=== PATIENT | male | born 1985 | race Caucasian/White ===

== ENCOUNTER 2017-03-15 08:45 | Emergency (ER) | payer BC ==
[~2017-03-15] VITALS: Ht 177.8 cm; Wt 125.5 kg
[~2017-03-15 08:45] MED LIST: AZIT250T PO; GUAI100L2 PO; LORA-741 PO; PRED10TA PO
[2017-03-15 08:53] VITALS: TEMP 36.7; Ht 177.8 cm; Wt 125.5 kg
[2017-03-15] MEDS ORDERED: SODIUM CHLORIDE 0.9% 1000ML 1,000 ML IV STA (09:13)
--- NOTE | 2017-03-15 09:27 | EMERGENCY ROOM VISIT NOTE ---
History First contact with patient: 09:01 Chief Complaint: ABDOMINAL PAIN Stated Complaint: PAIN BELOW BELLY BUTTON Nursing Triage Summary: patient c/o mid lower abdominal pain and tenderness to right lower abdomen since yesterday. patient referred to ER by PCP this AM. History of Present Illness The patient is a 32 year old male who presents to the Emergency Room with complaints of lower abdominal pain that started yesterday morning. He states the pain started around his bellybutton area, now has moved over towards the right side, pain has been constant and is worsening symptoms yesterday, worse with movement and attempts to brain picker objects or bending over, better with lying flat and resting, 8/10. He has tried ibuprofen for the pain, which has not helped, last dose was 10 PM yesterday. He has associated nausea and decreased appetite, denies any vomiting, diarrhea, fevers or chills. He ate a piece of bagel this morning at 6:30 AM. He saw his PCP today, who referred him here for further evaluation. He does report a history of a PE in 2013 secondary to surgery, states he is no longer on blood thinners but does take a baby aspirin. He denies any headaches, neck pain, chest pain, shortness of breath, back pain, diarrhea or blood in the stool, dysuria, urinary frequency, hematuria, or rash. Review of Systems A complete 10 point review of systems was reviewed with the patient with pertinent positives and negatives as per history of present illness. All else were negative. Past Medical/Surgical History Pulmonary embolism, cholecystectomy Family History Patient reports no known family medical history. Social History Smoking Status: Never Smoker Alcohol Use: none Drug Use: none Marital Status: Housing Status: lives with family Occupation Status: employed Current/Historical Medications No Active Prescriptions or Reported Meds Allergies No known allergies Physical Exam Vital Signs Date Time Temp Pulse Resp B/P (MAP) Pulse Ox O2 Delivery O2 Flow Rate FiO2 03/15/17 12:17 69 16 130/84 96 Room Air 03/15/17 10:30 70 18 139/96 96 Room Air 03/15/17 08:53 36.7 82 20 149/95 98 Room Air Physical Exam CONSTITUTIONAL: No acute distress. Mildly dehydrated. Obese. Pleasant and cooperative, interacts appropriately with provider. HEENT: Normocephalic, atraumatic. Pupils equal, round and reactive to light, EOMI. TMs normal. Pharynx normal. Tacky mucous membranes. NECK: Supple, full active range of motion without discomfort. RESPIRATORY: Clear to auscultation bilaterally with no wheezing, crackles, rhonchi or stridor. Equal expansion bilaterally. CARDIOVASCULAR: Regular rate and rhythm with no murmurs, rubs or gallops. Normal peripheral perfusion. No edema. GASTROINTESTINAL: Tenderness in the periumbilical and right lower quadrant region. Positive guarding on the right lower quadrant, negative rebound. Positive McBurney's point tenderness. Positive psoas test. Negative Rovsing. Soft, nondistended, obese. No palpable masses, hernias, or HSM. Hypoactive bowel sounds present in all quadrants. MUSCULOSKELETAL: Full range of motion of all joints without discomfort. INTEGUMENTARY: No rash or other significant dermatologic conditions noted. NEUROLOGIC: Alert and oriented X 4 with normal affect. Cranial nerves II-XII grossly intact. No focal neurologic deficits noted. Normal speech, normal gait. Medical Decision & Procedures ER Provider Diagnostic Interpretation: CT ABD/PELVIS IV CONTRAST ONLY CLINICAL HISTORY: Periumbilical and right lower quadrant abdominal pain COMPARISON STUDY: 06/13/2013 TECHNIQUE: Following the IV administration of 93 mL of Optiray-320, CT scan of the abdomen and pelvis was performed from the lung bases to the proximal femurs. Images are reviewed in the axial, sagittal, and coronal planes. IV contrast was administered without complication. A dose lowering technique was utilized adhering to the principles of ALARA. CT DOSE: 1323.90 mGy.cm FINDINGS: Lower chest: There are minor dependent atelectatic changes. Liver: There is mild hepatic steatosis. No focal masses are visualized. Gallbladder: Surgically absent Spleen: Normal in size and attenuation. Pancreas: Unremarkable. Adrenal glands: Unremarkable. Kidneys: There is a 21 mm upper pole right renal cyst. Bowel: There are no transition zones indicate bowel obstruction. There is no evidence of acute diverticulitis. There is no evidence of acute appendicitis. There is minimal submucosal fat hypertrophy within the terminal ileum. Peritoneum: There is no intraperitoneal free air or abdominal ascites. Vasculature: The abdominal aorta is normal in course and caliber. Adenopathy: None. Pelvic viscera: The bladder, and pelvic viscera are unremarkable. Skeletal structures: No destructive osseous lesions are seen. IMPRESSION: 1. No evidence of bowel obstruction. No evidence of free air 2. Surgically absent gallbladder 3. Hepatic steatosis 4. Normal appendix. No evidence of acute diverticulitis 5. Minimal submucosal fat hypertrophy within the terminal ileum Laboratory Results 03/15/17 09:50 Red Blood Count 4.92, Mean Corpuscular Volume 87.4, Mean Corpuscular Hemoglobin 30.5, Mean Corpuscular Hemoglobin Concent 34.9, Mean Platelet Volume 10.2, Neutrophils (%) (Auto) 66.3, Lymphocytes (%) (Auto) 25.3, Monocytes (%) (Auto) 6.0, Eosinophils (%) (Auto) 1.5, Basophils (%) (Auto) 0.4, Neutrophils # (Auto) 4.87, Lymphocytes # (Auto) 1.86, Monocytes # (Auto) 0.44, Eosinophils # (Auto) 0.11, Basophils # (Auto) 0.03 03/15/17 09:50 Test 03/15/17 00:00 03/15/17 09:50 Urine Color YELLOW Urine Appearance CLEAR (CLEAR) Urine pH 6.0 (4.5-7.5) Urine Specific [place] 1.023 (1.000-1.030) Urine Protein NEG (NEG) Urine Glucose (UA) NEG (NEG) Urine Ketones NEG (NEG) Urine Occult Blood TRACE (NEG) Urine Nitrite NEG (NEG) Urine Bilirubin NEG (NEG) Urine Urobilinogen NEG (NEG) Urine Leukocyte Esterase NEG (NEG) Urine WBC (Auto) 1-5 /hpf (0-5) Urine RBC (Auto) 5-10 /hpf (0-4) Urine Hyaline Casts (Auto) 1-5 /lpf (0-5) Urine Epithelial Cells (Auto) 0-5 /lpf (0-5) Urine Bacteria (Auto) NEG (NEG) White Blood Count 7.35 K/uL (4.8-10.8) Red Blood Count 4.92 M/uL (4.7-6.1) Hemoglobin 15.0 g/dL (14.0-18.0) Hematocrit 43.0 % (42-52) Mean Corpuscular Volume 87.4 fL (80-100) Mean Corpuscular Hemoglobin 30.5 pg (25-34) Mean Corpuscular Hemoglobin Concent 34.9 g/dl (32-36) Platelet Count 277 K/uL (130-400) Mean Platelet Volume 10.2 fL (7.4-10.4) Neutrophils (%) (Auto) 66.3 % Lymphocytes (%) (Auto) 25.3 % Monocytes (%) (Auto) 6.0 % Eosinophils (%) (Auto) 1.5 % Basophils (%) (Auto) 0.4 % Neutrophils # (Auto) 4.87 K/uL (1.4-6.5) Lymphocytes # (Auto) 1.86 K/uL (1.2-3.4) Monocytes # (Auto) 0.44 K/uL (0.11-0.59) Eosinophils # (Auto) 0.11 K/uL (0-0.5) Basophils # (Auto) 0.03 K/uL (0-0.2) RDW Standard Deviation 41.4 fL (36.4-46.3) RDW Coefficient of Variation 13.0 % (11.5-14.5) Immature Granulocyte % (Auto) 0.5 % Immature Granulocyte # (Auto) 0.04 K/uL (0.00-0.02) Anion Gap 3.0 mmol/L (3-11) Est Creatinine Clear Calc Drug Dose 178.5 ml/min Estimated GFR () 137.7 Estimated GFR (Non- 118.8 BUN/Creatinine Ratio 17.7 (10-20) Calcium Level 8.8 mg/dl (8.5-10.1) Total Bilirubin 0.6 mg/dl (0.2-1) Aspartate Amino Transf (AST/SGOT) 15 U/L (15-37) Alanine Aminotransferase (ALT/SGPT) 39 U/L (12-78) Alkaline Phosphatase 75 U/L (45-117) Total Protein 7.4 gm/dl (6.4-8.2) Albumin 3.7 gm/dl (3.4-5.0) Globulin 3.7 gm/dl (2.5-4.0) Albumin/Globulin Ratio 1.0 (0.9-2) Medications Administered Medications (Trade) Dose Ordered Sig/Lelia Route Start Time Stop Time Status Last Admin Dose Admin Sodium Chloride 1,000 ml @ 999 mls/hr Q1H1M STAT IV 03/15/17 09:13 03/15/17 10:13 DC 03/15/17 09:13 999 MLS/HR Ketorolac Tromethamine (Toradol Inj) 15 mg NOW STAT IV 03/15/17 11:34 03/15/17 11:35 DC 03/15/17 12:17 15 MG Medical Decision CC: Patient presenting with complaint of abdominal pain Interpretation of Labs: No leukocytosis, no anemia, no significant electrolyte abnormalities, normal renal function, normal liver enzymes and lipase. UA shows trace blood, otherwise negative, no infection. Differential Diagnosis: Includes, but not limited to appendicitis, mesenteric adenitis, small bowel obstruction, UTI, abdominal hernia, musculoskeletal sprain /strain, among others. Medication Reconciliation: I attest that I have personally reviewed the patient' s current medication list. Vital signs review: I reviewed the patient's vital signs and interpret them as follows: T: Afebrile; BP: Hypertensive; HR: Within normal limits; RR: Within normal limits; Pulse Ox: Within normal limits on room air. Blood pressure screening: The patient was found to have an elevated blood pressure, this improved after management of pain and was felt to be situational. Summary: Patient was evaluated at bedside, history and physical exam performed. Patient is alert and oriented, no acute distress, but does appear to be uncomfortable during my exam of his abdomen. His tenderness to palpation of the right lower quadrant with some guarding. Given his persistent worsening pain, I am concerned for appendicitis. Orders were placed at bedside for labs, UA, IV fluids for hydration, CT abdomen/ pelvis with IV contrast to evaluate for appendicitis. The patient was offered pain medication and nausea medication, he declines at this time. Patient discussed with Dr. Patel, who agrees with my assessment and plan. Labs are as above, unremarkable. CT imaging is negative for any acute findings, specifically no appendicitis. Patient reassessed multiple times throughout ED stay, he reports feeling slightly improved, but still having the same amount of pain. He was offered Toradol for the pain, which he accepted, and did have some improvement with this. Patient was updated on all results and plan for discharge, and was encouraged to follow closely with his PCP. He was also given strict return precautions should his symptoms persist or worsen, he verbalized understanding. Patient was discharged home in stable condition and ambulatory. Medication Reconcilliation Current Medication List: was personally reviewed by me Blood Pressure Screening Patient's blood pressure: Elevated blood pressure Blood pressure disposition: Elevated BP felt to be situational Impression Primary Impression: Abdominal pain Departure Information Dispostion Home / Self-Care Condition GOOD Prescriptions No Active Prescriptions or Reported Meds Referrals Anjum Alston M.D.([facility]) (PCP) Patient Instructions ED Abdominal Pain Unkn Cause Male, [facility] Additional Instructions You have been treated in the Emergency Department your Abdominal Pain. Laboratory results and imaging studies have ruled out any emergent causes for your abdominal pain which would warrant admission or surgery. For pain control, you can use the following [id number] medicines (if >12 yo): - Regular strength (325mg/tab) Tylenol (acetaminophen) 2 tabs every 4-6 hours as needed. Do not exceed 10 tablets in a 24 hour period. Avoid taking more than 3000 mg of Tylenol per day. This includes any other sources of acetaminophen you may take on a regular basis. - Regular strength (200 mg/tab) Advil (ibuprofen) 3 tabs every 6-8 hours as needed. Do not exceed a dose of 2400 mg per day. You may also try alternating between ice and heat to your abdomen for comfort. Drink plenty of fluids to stay well hydrated. As with any trip to the Emergency Department, you should follow-up with your Primary Care Provider in the next few days. Return to the emergency department for severe worsening pain, fevers, chills, worsening nausea/vomiting, blood in your stool or urine. Problem Qualifiers Primary Impression: Abdominal pain Abdominal location: right lower quadrant Qualified Codes: R10.31 - Right lower quadrant pain
[2017-03-15] MEDS ORDERED: OPTIRAY 320 IV PRN (09:30)
[2017-03-15 10:11] LABS: BASO % 0.4 %; BASO ABS # 0.03 K/uL (0-0.2); COMPLETE YES; EOS % 1.5 %; IG% 0.5 %; LYMPH % 25.3 %; LYMPH ABS # 1.86 K/uL (1.2-3.4); MEAN CELL VOLUME 87.4 fL (80-100); MEAN CORPUSCULAR HEMOGLOBIN 30.5 pg (25-34); MEAN CORPUSCULAR HGB CONC 34.9 g/dl (32-36); MEAN PLATELET VOLUME 10.2 fL (7.4-10.4); NEUT % 66.3 %; PLATELET COUNT 277 K/uL (130-400); RED BLOOD COUNT 4.92 M/uL (4.7-6.1); WHITE BLOOD COUNT 7.35 K/uL (4.8-10.8)
[2017-03-15 10:29] LABS: BUN/CREATININE RATIO 17.7 (10-20); CALCIUM 8.8 mg/dl (8.5-10.1); CREATININE 0.79 mg/dl (0.60-1.40)
[2017-03-15 10:45] LABS: URINE APPEARANCE CLEAR (CLEAR); URINE BILIRUBIN NEG (NEG); URINE COLOR YELLOW; URINE EPITHELIAL CELL AUTO 0-5 /lpf (0-5); URINE NITRITE NEG (NEG); URINE SPECIFIC GRAVITY 1.023 (1.000-1.030); UROBILINOGEN NEG (NEG); ZZUR CULT IF INDIC CLEAN CATCH NO
[2017-03-15 10:46] LABS: MANUAL MICROSCOPIC REQUIRED? NO; REVIEW REQ? NO
--- NOTE | 2017-03-15 11:05 | DIAGNOSTIC IMAGING REPORT ---
CT ABD/PELVIS IV CONTRAST ONLY CLINICAL HISTORY: Periumbilical and right lower quadrant abdominal pain COMPARISON STUDY: 06/13/2013 TECHNIQUE: Following the IV administration of 93 mL of Optiray-320, CT scan of the abdomen and pelvis was performed from the lung bases to the proximal femurs. Images are reviewed in the axial, sagittal, and coronal planes. IV contrast was administered without complication. A dose lowering technique was utilized adhering to the principles of ALARA. CT DOSE: 1323.90 mGy.cm FINDINGS: Lower chest: There are minor dependent atelectatic changes. Liver: There is mild hepatic steatosis. No focal masses are visualized. Gallbladder: Surgically absent Spleen: Normal in size and attenuation. Pancreas: Unremarkable. Adrenal glands: Unremarkable. Kidneys: There is a 21 mm upper pole right renal cyst. Bowel: There are no transition zones indicate bowel obstruction. There is no evidence of acute diverticulitis. There is no evidence of acute appendicitis. There is minimal submucosal fat hypertrophy within the terminal ileum. Peritoneum: There is no intraperitoneal free air or abdominal ascites. Vasculature: The abdominal aorta is normal in course and caliber. Adenopathy: None. Pelvic viscera: The bladder, and pelvic viscera are unremarkable. Skeletal structures: No destructive osseous lesions are seen. IMPRESSION: 1. No evidence of bowel obstruction. No evidence of free air 2. Surgically absent gallbladder 3. Hepatic steatosis 4. Normal appendix. No evidence of acute diverticulitis 5. Minimal submucosal fat hypertrophy within the terminal ileum Electronically signed by: Jose Luis Mayfield M.D. 03/15/2017 11:03 AM Dictated Date/Time: 03/15/2017 10:56 AM
[2017-03-15] MEDS ORDERED: KETOROLAC TROMETHAMINE 30 MG/ML VIAL IV STA (11:34)
[2017-03-15 12:17] VITALS: BP 130/84; PULSE 69; O2SAT 96
== END 2017-03-15 12:45 | disposition home or self-care (01) ==
LOC: C.EDB 08:46 → C.EDA 12:45
DX: R10.31 Right lower quadrant pain (principal); Z86.711 Personal history of pulmonary embolism; Z90.49 Acquired absence of other specified parts of digestive tract

== ENCOUNTER 2023-01-02 13:37 | Inpatient (IN) ==
--- NOTE | 2023-01-02 13:44 | Emergency Department Note ---
Impression & Plan ST elevation (STEMI) myocardial infarction, Chest pain, Elevated troponin I level ED Provider Note NAME: ROSALINA FARIAS AGE: 37 SEX: M : 1985 ARRIVES VIA: Ambulance INFORMANT: Patient, EMS personnel ED PROVIDER(S): Charli Díaz DO CHIEF COMPLAINT: Chest pain HPI: The patient is a 37-year-old male who presented to the emergency department from his family doctor's office for an evaluation of chest pain. The patient states that he was there for a routine visit. He did receive his flu shot while he was there he mention to the family doctor that he has been having intermittent episodes of chest pain sometimes with exertion. He recently had a strep infection but this does not appear to be bothering him at this time. He denies having any fever or sore throat. He was complaining of some shortness of breath but not at this time. The patient denies having any leg swelling or leg pain. He denies having any pain when he lays flat. The patient has no pain at this time and was treated with aspirin prior to arrival ROS: See above HPI for pertinent positives & negatives. A total of 10 systems reviewed and were otherwise negative. PAST MEDICAL HISTORY: See Below PAST SURGICAL HISTORY: See Below FAMILY HISTORY: See Below SOCIAL HISTORY: See Below HOME MEDICATIONS: See Below ALLERGIES: See Below VITALS: See Below PHYSICAL EXAMINATION: GENERAL: Patient is awake alert in no acute distress patient is resting comfortably and showing no signs of anxiety EYES: The conjunctivae are clear. The pupils are round and reactive. EARS, NOSE, MOUTH AND THROAT: The nose is without any evidence of any deformity. NECK: The neck is nontender and supple. RESPIRATORY: Normal respiratory effort is noted there is no evidence of wheezing rhonchi or rales CARDIOVASCULAR: Regular rate and rhythm noted there no murmurs rubs or gallops normal S1 normal S2. GASTROINTESTINAL: The abdomen is soft. Abdomen is nontender. MUSCULOSKELETAL/EXTREMITIES: There is no evidence of gross deformity full range of motion is noted in the hips and shoulders. SKIN: There is no obvious evidence of any rash. There are no petechiae, pallor or cyanosis noted. NEUROLOGIC: Patient is awake alert and oriented x3 MEDICAL DECISION MAKING: The patient is a 37-year-old male who presented to the emergency department because of an abnormal EKG. 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 The patient does not currently take any blood thinners. He was at his primary care physician's office. He received a flu shot. He discussed his complaints with the primary care physician including intermittent episodes of exertional chest pain especially over the last few weeks. The patient has no chest pain at this time. He was sent to the emergency department by ambulance because of a an abnormal EKG including concerns for ST segment elevation IN. I did review the patient's previous EKG as well as his EKG in the emergency department. I reviewed the patient's prehospital EKGs as well as EKGs done in the office. There were significant ST segment abnormalities compared to the baseline EKG. I discussed patient's condition with the zig zag stitcher. The patient was not made a heart alert as he has no pain at this time. After reviewing the patient's EKGs as well as the patient's overall condition he was felt to be a good candidate for the Val[facility] [employer]. I discussed the patient's condition with the on-call [facility] hospitalist. They have agreed to evaluate the patient in the emergency department. Triage Nursing notes reviewed. Prior medical records reviewed Vital Signs: reviewed and remarkable for elevated blood pressure and tachycardia. Differential diagnosis: Cardiac ischemia, aortic dissection, pulmonary embolism, pneumothorax, pneumonia, pericarditis, myocarditis, esophageal rupture, GERD, cholecystitis, pancreatitis, musculoskeletal, as well as other pathologies. ER treatment provided: See below Diagnostics interpreted by me: ECG: EKG was obtained in the emergency department. My interpretation is sinus tachycardia at 101 bpm. There was no ectopy. Acute ST segment elevations were noted in the high lateral leads with reciprocal changes in the inferior leads. Nonspecific T wave abnormalities were noted anteriorly. This was compared to a tracing from April 07, 2022. Segment allergies are new compared Yes to the previous tracing. Prehospital EKG was reviewed. My interpretation is sinus tachycardia 112 bpm. There is no ectopy. Similar ST elevation in the high lateral leads was noted with reciprocal changes inferiorly. EKG was obtained in the patient's primary care physician's office. My interpretation is normal sinus rhythm at 80 bpm. There is no ectopy. Elevation in the high lateral leads was noted with reciprocal changes inferiorly. This compares similar to the EKG obtained in the emergency department Cardiac Monitoring: An order was placed for continuous cardiac monitoring. The monitor shows a rate of 115 bpm with sinus tachycardia. Laboratory studies: As stated above and show below. Imaging studies: See below. Radiographic imaging was reviewed by myself Consultation(s): I discussed this case with Dr. Cunningham who was on for for interventional cardiology I discussed this case with [place] who is on-call for the [facility] hospitalist group. ED COURSE: Procedures: none Critical Care: I have personally spent greater than 35 minutes of critical care time in the direct management of this patient. This includes bedside care, interpretation of diagnostic studies, and testing, discussion with consultants, patient, and family members, and other required patient management activities. This 35 minutes is in excess of all separately billable procedures. Past Med/Surg History Medical History Acute streptococcal pharyngitis Acute tonsillitis Dyspnea Pulmonary embolism (06/21/13) Social History Smoking Status: Never smoker Tobacco Type: Cigarettes Preferred Language: Czech Feels Safe at Home: Yes Allergies Allergies Allergy/AdvReac Type Severity Reaction Status Date / Time No Known Allergies Allergy Unverified 07/02/19 23:05 Results & Data (ED) Vital Signs Vital Signs - 24 hr 01/02/23 13:40 01/02/23 13:48 01/02/23 13:49 Temperature 37.1 C Temperature Source Oral Pulse Rate 108 H 113 H Respiratory Rate 22 20 Respiratory Effort / Characteristics Non-Labored Spontaneous Respiratory Depth Normal Respiratory Pattern Regular Blood Pressure 166/91 H Blood Pressure Mean 116 Blood Pressure Position Semi-fowlers Pulse Oximetry 100 100 100 Oxygen Delivery Method Room Air Room Air Room Air Sepsis Recent Fever Within 48 Hours No Sepsis New/Unexplained Change in Mental Status N/A Sepsis Action Taken by Nursing Physician Notified 01/02/23 13:41 01/02/23 13:51 01/02/23 13:59 Temperature Temperature Source Pulse Rate 113 H 115 H Respiratory Rate 28 H Respiratory Effort / Characteristics Respiratory Depth Respiratory Pattern Blood Pressure 149/110 H Blood Pressure Mean 123 Blood Pressure Position Pulse Oximetry 99 Oxygen Delivery Method Room Air Room Air Sepsis Recent Fever Within 48 Hours Sepsis New/Unexplained Change in Mental Status Sepsis Action Taken by [facility] Medications Current Medication List: was personally reviewed by me Laboratory Data Attestation: I reviewed the patient's lab results. 01/02/23 13:33 01/02/23 13:33 Lab Results 01/02/23 01/02/23 01/02/23 Range/Units 13:33 13:33 13:33 WBC 7.85 (4.8-10.8) K/ul RBC 4.00 L (4.70-6.10) M/uL Hgb 13.2 L (14.0-18.0) g/dl Hct 39.0 L (42.0-52.0) % MCV 97.5 (80.0-100.0) fL MCH 33.0 (25.0-34.0) pg MCHC 33.8 (32.0-36.0) g/dL RDW Std Deviation 68.0 H (36.4-46.3) fL RDW Coeff of Nicki 18.9 H (11.5-14.5) % Plt Count 410 H (130-400) K/uL MPV 9.8 (9.4-12.4) fL Immature Gran % (Auto) 0.3 % Neut % (Auto) 50.8 % Lymph % (Auto) 35.2 % [place] % (Auto) 11.7 % Eos % (Auto) 0.9 % Baso % (Auto) 1.1 % Neut # (Auto) 3.99 (1.40-6.50) K/uL Lymph # (Auto) 2.76 (1.20-3.40) K/uL [place] # (Auto) 0.92 H (0.11-0.59) K/uL Eos # (Auto) 0.07 (0.00-0.50) K/uL Baso # (Auto) 0.09 (0.00-0.20) K/uL Immature Gran # (Auto) 0.02 (0.01-0.20) K/uL ESR 40 H (0-15) mm/hr PT (9.0-12.0) Seconds INR (0.9-1.1) APTT (21.0-31.0) Seconds PTT Ratio Sodium 136 (136-145) mmol/L Potassium 3.9 (3.5-5.1) mmol/L Chloride 104 (98-107) mmol/L Carbon Dioxide 26 (21-32) mmol/L Anion Gap 6 (3-11) BUN 11 (6-23) mg/dl Creatinine 0.83 (0.6-1.4) mg/dl Est Cr Clr Drug Dosing 166.1 ml/min Est GFR ( Amer) 130.3 ml/min Est GFR (Non-Af Amer) 112.4 ml/min BUN/Creatinine Ratio 13.3 (10-20) Glucose 101 H (70-99(Fasting)) mg/dl Calcium 8.8 (8.6-10.3) mg/dl Total Bilirubin 1.0 (0.2-1.0) mg/dl AST 50 H (13-39) U/L ALT 38 (7-52) U/L Alkaline Phosphatase 67 (34-104) U/L Troponin I High Sens 6009.2 H* (0-20) pg/ml C-Reactive Protein 3.83 H (0-0.5) mg/dl Total Protein 7.0 (6.0-8.3) gm/dl Albumin 4.1 (3.4-5.0) gm/dl Globulin 2.9 (2.5-4.0) gm/dl Albumin/Globulin Ratio 1.4 (0.9-2) Lipase 12 (11-82) U/L Procalcitonin (0-0.5) ng/ml 01/02/23 01/02/23 Range/Units 13:33 13:33 WBC (4.8-10.8) K/ul RBC (4.70-6.10) M/uL Hgb (14.0-18.0) g/dl Hct (42.0-52.0) % MCV (80.0-100.0) fL MCH (25.0-34.0) pg MCHC (32.0-36.0) g/dL RDW Std Deviation (36.4-46.3) fL RDW Coeff of Nicki (11.5-14.5) % Plt Count (130-400) K/uL MPV (9.4-12.4) fL Immature Gran % (Auto) % Neut % (Auto) % Lymph % (Auto) % [place] % (Auto) % Eos % (Auto) % Baso % (Auto) % Neut # (Auto) (1.40-6.50) K/uL Lymph # (Auto) (1.20-3.40) K/uL [place] # (Auto) (0.11-0.59) K/uL Eos # (Auto) (0.00-0.50) K/uL Baso # (Auto) (0.00-0.20) K/uL Immature Gran # (Auto) (0.01-0.20) K/uL ESR (0-15) mm/hr PT 10.9 (9.0-12.0) Seconds INR 1.0 (0.9-1.1) APTT 28.5 (21.0-31.0) Seconds PTT Ratio 1.0 Sodium (136-145) mmol/L Potassium (3.5-5.1) mmol/L Chloride (98-107) mmol/L Carbon Dioxide (21-32) mmol/L Anion Gap (3-11) BUN (6-23) mg/dl Creatinine (0.6-1.4) mg/dl Est Cr Clr Drug Dosing ml/min Est GFR ( Amer) ml/min Est GFR (Non-Af Amer) ml/min BUN/Creatinine Ratio (10-20) Glucose (70-99(Fasting)) mg/dl Calcium (8.6-10.3) mg/dl Total Bilirubin (0.2-1.0) mg/dl AST (13-39) U/L ALT (7-52) U/L Alkaline Phosphatase (34-104) U/L Troponin I High Sens (0-20) pg/ml C-Reactive Protein (0-0.5) mg/dl Total Protein (6.0-8.3) gm/dl Albumin (3.4-5.0) gm/dl Globulin (2.5-4.0) gm/dl Albumin/Globulin Ratio (0.9-2) Lipase (11-82) U/L Procalcitonin 0.09 (0-0.5) ng/ml Imaging Data Attestation: I personally reviewed and interpreted this imaging study as follows: My Impression: 1 view chest x-ray was obtained in the emergency department. My interpretation is cardiomegaly, no definite free air or infiltrate, final report pending. Discharge Plan Visit Data Chief Complaint: Chest Pain Stated Complaint: CHEST PAIN ED Provider: Charli Díaz Discharge Problem: ST elevation (STEMI) myocardial infarction, Chest pain, Elevated troponin I level Patient Disposition: Still a Patient Discharge Instructions Interventions: ED Discharge Assessment Last Done: 01/02/23 13:59 ST elevation (STEMI) myocardial infarction Qualifiers: Involved coronary artery: unspecified coronary artery Qualified Code(s): I21.3 - ST elevation (STEMI) myocardial infarction of unspecified site Chest pain Qualifiers: Chest pain type: unspecified Qualified Code(s): R07.9 - Chest pain, unspecified
[2023-01-02] MEDS ORDERED: NITROGLYCERIN/D5W 100MCG/ML 20ML SYR ONE (13:56)
[2023-01-02] MEDS ORDERED: HEPARIN (PORCINE) 1000 UNIT/ML 10 ML (CATH LAB USE ONLY) ONE (13:56)
[2023-01-02] MEDS ORDERED: MIDAZOLAM HCL 1 MG/ML 2ML VIAL ONE ×2 (13:56→14:21)
[2023-01-02] MEDS ORDERED: niCARdipine HCL INJ 2.5 MG/ML 10 ML AMP ONE (13:56)
[2023-01-02] MEDS ORDERED: fentaNYL citrate PF 100 MCG/2 ML VIAL ONE (13:56)
[2023-01-02 14:06] LABS: Basophils # (auto) 0.09 K/uL (0.00-0.20); Basophils % (auto) 1.1 %; Eosinophils # (auto) 0.07 K/uL (0.00-0.50); Eosinophils % (auto) 0.9 %; Hemoglobin 13.2 g/dl (14.0-18.0); Immature Granulocytes # (auto) 0.02 K/uL (0.01-0.20); Immature Granulocytes % (auto) 0.3 %; Lymphocytes # (auto) 2.76 K/uL (1.20-3.40); Lymphocytes % (auto) 35.2 %; Mean Corpuscular Hgb Conc 33.8 g/dL (32.0-36.0); Mean Corpuscular Volume 97.5 fL (80.0-100.0); Mean Platelet Volume 9.8 fL (9.4-12.4); Monocytes # (auto) 0.92 K/uL (0.11-0.59); Monocytes % (auto) 11.7 %; Neutrophils # (auto) 3.99 K/uL (1.40-6.50); Neutrophils % (auto) 50.8 %; Platelet Count 410 K/uL (130-400); RDW Coefficient of Variation 18.9 % (11.5-14.5); White Blood Count 7.85 K/ul (4.8-10.8)
[2023-01-02 14:14] LABS: Albumin Globulin Ratio 1.4 (0.9-2); Albumin Level 4.1 gm/dl (3.4-5.0); BUN Creatinine Ratio 13.3 (10-20); C Reactive Protein 3.83 mg/dl (0-0.5); Calcium 8.8 mg/dl (8.6-10.3); Creatinine Clr Calc Pharmacy 166.1 ml/min; Est GFR (African American) 130.3 ml/min; Est GFR (Non-African American) 112.4 ml/min; Globulin 2.9 gm/dl (2.5-4.0); Potassium 3.9 mmol/L (3.5-5.1)
[2023-01-02] MEDS ORDERED: NITROGLYCERIN SL 0.4 MG/TAB TAB ONE (14:22)
[2023-01-02 14:23] LABS: Troponin I High Sensitivity 6009.2 pg/ml (0-20)
[2023-01-02 14:27] LABS: Partial Thromboplastin Time 28.5 Seconds (21.0-31.0); Prothrombin Time 10.9 Seconds (9.0-12.0)
[2023-01-02] MEDS ORDERED: MAGNESIUM HYDROXIDE SUSP 30 ML UDC PO PRN (14:42)
[2023-01-02] MEDS ORDERED: ACETAMINOPHEN 325 MG TAB PO PRN ×2 (14:42→14:45)
[2023-01-02] MEDS ORDERED: ONDANSETRON INJ 2 MG/ML 2 ML VIAL IV PRN ×2 (14:42→14:45)
[2023-01-02] MEDS ORDERED: POLYETHYLENE (MIRALAX) 17 GM PACK PO PRN (14:42)
[2023-01-02] MEDS ORDERED: ALUMINUM/MAGNESIUM SUSP 30 ML UDC PO PRN (14:42)
[2023-01-02] MEDS ORDERED: NITROGLYCERIN SL 0.4 MG/TAB TAB SL PRN (14:45)
--- NOTE | 2023-01-02 14:49 | Pre Anesthesia Assessment ---
Date of Service January 02, 2023 Pre Sedation Assessment Vital Signs Temp Pulse Resp BP Pulse Ox O2 Del Method 01/02/23 13:59 Room Air 01/02/23 13:51 115 H 28 H 149/110 H 99 Room Air 01/02/23 13:41 113 H 01/02/23 13:49 100 Room Air 01/02/23 13:48 113 H 20 100 Room Air 01/02/23 13:40 37.1 C 108 H 22 166/91 H 100 Room Air Cardiovascular RRR, no murmur, no edema Respiratory normal respiratory effort, lungs clear to auscultation Pre-Sedation Airway Assessment Smoking Status: Never smoker mallampati 2 ASA-3 Notes The planned sedation has been discussed with the patient. Informed Consent was obtained. I have identified the patient, determined the appropriateness of sedation and have assessed the patient immediately prior to the procedure. All medicine(s) and interventions are by my order.
--- NOTE | 2023-01-02 14:50 | Post Anesthesia Assessment ---
Date of Service January 02, 2023 Post Sedation Assessment Vital Signs Temp Pulse Resp BP Pulse Ox O2 Del Method 01/02/23 13:59 Room Air 01/02/23 13:51 115 H 28 H 149/110 H 99 Room Air 01/02/23 13:41 113 H 01/02/23 13:49 100 Room Air 01/02/23 13:48 113 H 20 100 Room Air 01/02/23 13:40 37.1 C 108 H 22 166/91 H 100 Room Air Recovery Score Activity: Moves 4 extremities Respiration: Deep Breath/Cough Circulation: +/-20% PreAnes Value Consciousness: Fully Awake Oxygen Saturation: > 92% On Room Air Discharge Sedation Level of Care: Fast Track Phase II Post Sedation Plan On clinical assessment, the patient appears to have tolerated the sedation without complications. Patient is recovering as anticipated. Patient will continue to be monitored by nursing and may be discharged when sedation discharge criteria are met per below protocol. Upon Completions of procedure up to 15 minutes continue every 5 minute vital signs and the P.A.R. score; then discharge to a Phase I or Fast Track to Phase II per the following guidelines: * Discharge Patient to appropriate Phase II area if PAR is 8 or greater or return to pre- procedure baseline. The post - procedure orders will be as directed. * If PAR score is less than 8 or not return to pre-procedure baseline then patient will follow Phase I monitoring till PAR is reached for Phase II. The Phase I may be done in procedure room or may call to secure a Phase I area. * If naloxone or flumazenil are used for reversal, hold in Phase I for continued monitoring from when last reversal dose was given for a minimum of 60 minutes or longer pending the nurse and/or physician discretion of patient condition before discharge to Phase II. Please call the Sedation Physician to re-evaluate and complete post-note for discharge to Phase II area. Do NOT discharge from procedure sedation or Phase 1 until post- sedation evaluation note is complete by procedure /sedation MD Sedation Discharge Instructions to be given to the patient at discharge to home. [facility] Procedure Codes (Charges) Indication for Procedure Indication for procedure: possible AMI Sedation/Anesthesia Procedure 1: Sedation/Anesthesia: 50146 Mod Sedation by the same physician;Init15 Min Child Age 5 & Up (initial 15 min, start time 1412, end time 1421)
--- NOTE | 2023-01-02 14:57 | History & Physical Report ---
Date of Service January 02, 2023 Assessment & Plan (1) ST elevation (STEMI) myocardial infarction: (2) History of pulmonary embolism: (3) History of Filemon-Schaeffer virus infection: (4) EDMAR (obstructive sleep apnea): (5) Depression: Plan Mr. Mcdonough is a 37 year old obese individual that presented to the ED as per recommendation of his PCP after noticing ST elevation in lateral leads on his ECG. ASA 81 mg x4 was given by EMS. He reports experiencing chest pain for one month. Stated that he has noticed exertional chest pain this past weekend when he was carrying a table for his daughters 2nd birthday libertarian and he became 'wind ed' during movement of them that made his anterior chest pain worse. This past weekend he also noticed joint pain in his knees and wrists. 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 ECG revealed ST elevation is lateral leads, including Pt was taken urgently to the sanitation laborer . For now, suspect patient has myocarditis. ECHO was obtained: EF 55-60%, LV wall motion normal, moderate LVH noted, no significant valve disease noted. Will trend high-sensitivity troponin level, continue baby aspirin and per cardiology recommendation repeat echo in 24 to 48 hours. low dose beta-dahiana and ACEI st arted post cath. Appreciate cardiology input. STEMI VT, lateral wall: PCU admission exertional chest pain over past few weeks urgent cath performed; without significant disease and no intervention. 20% LAD stenosis discovered. will obtain ECHO to r/o myocarditis; EF 55-60%, LV wall motion normal, moderate LVH noted, no significant valve disease noted Initial Trop 6009' will trend HS Troponin Continue baby ASA Ultram post cath for pain Cardiology consult placed and betablocker + ACEI started by their service History of Filemon-Schaeffer virus infection: H/O Strep infection: tested positive on 12/17 Completed Augmentin course will obtain ECHO; EF 55-60%, LV wall motion normal, moderate LVH noted, no significant valve disease noted Polyarthralgia: joint pain noted over past few days; bilateral Lyme's test ordered History of PE: chronic stable provoked from cholecystectomy 2013 was on Anticoagulation x6 months; takes baby ASA now need to consider clot in differential; consider Chest CTA EDMAR: chronic stable wears CPAP QHS; bringing in his own machine Depression: Chronic stable Takes Buspar and Deplin; continue Disposition: PCP: Dr. Nichols Code Status: Full Code VTE Prophylaxis: Teds and SCDs for now I spent a total of 87 minutes coordinating, documenting, and providing care for this patient excluding time spent in the performance of separately billed services. All of the aforementioned completed while collaborating with the assigned attending physician for a full treatment plan. Please see their addendum for further details. History of Present Illness Chief Complaint: stemi Primary Care Provider: Verónica Nichols MD Mr. Mcdonough is a 37 year old obese individual that presented to the ED as per recommendation of his PCP after noticing ST elevation on his ECG. ASA 81 mg x4 was given by EMS. He reports experiencing chest pain for one month. Stated that he has noticed exertional chest pain this past weekend when he was carrying a table for his daughters 2nd birthday libertarian and he became 'winded' during movement of them that made his anterior chest pain worse. This past weekend he also noticed joint pain in his knees and wrists. 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 ECG revealed ST elevation is lateral leads, including Pt was taken urgently to the sanitation laborer . Cardiac cath without significant disease and no intervention. 20% LAD stenosis discovered. PMH includes H/O PE s/p provoked by gallbladder surgery in 2013. Was on anticoagulation x6 months, currently just takes baby asa. Additional history includes COPD (on cpap QHS), and depression. In review of EMR; appears patient tested positive for EBV on 12/17. Recently completed Augmentin for treatment of Strep. Will obtain an Echocardiogram, no previous available for comparison for suspicion of myocarditis. Family history includes: MGM: valve replacement at 50 y/o, Mother had CHF, mitral valve replacement at 44 y/o and at 54 y/o. Denies tobacco use, alcohol use, or recreational drug use. Post cath, patient denies chest pain, SOB, palpitations, abdominal pain or tenderness, recent falls or trauma. Patient hypertensive post cath, with elevated HR. Discussed directly with Cardiology.Cards starting on beta-dahiana and ACEI. For now, suspect patient has myocarditis. ECHO was obtained: EF 55-60%, LV wall motion normal, moderate LVH noted, no significant valve disease noted. Will trend high-sensitivity troponin level, continue baby aspirin and per cardiology recommendation repeat echo in 24 to 48 hours. Appreciate cardiology input Patient will be admitted for further evaluation and management. Please see A/P for further details. Allergies Allergy/AdvReac Type Severity Reaction Status Date / Time No Known Allergies Allergy Unverified 07/02/19 23:05 Home Medications Medication Instructions Recorded Confirmed Type aspirin 81 mg capsule 81 mg PO DAILY 01/02/23 01/02/23 History bupropion HCl 150 mg 24 hr tablet, 150 mg PO DAILY 01/02/23 01/02/23 History extended release Past Med/Surg History Medical History (Updated 01/03/23 @ 00:08 by Flores Phelps) Acute streptococcal pharyngitis Acute tonsillitis Depression Dyspnea History of Filemon-Schaeffer virus infection History of pulmonary embolism EDMAR (obstructive sleep apnea) Pulmonary embolism (06/21/13) Surgical History (Updated 01/02/23 @ 16:00 by ANGIE Phillips) History of cholecystectomy Family History (Updated 01/02/23 @ 15:59 by ANGIE Phillips) Grandfather (Maternal) No problems noted. Grandfather (Maternal) No problems noted. Grandmother (Maternal) Coronary heart disease Mother Coronary heart disease Other Cancer Social History Smoking Status: Never smoker Tobacco Type: Cigarettes Second Hand Exposure: No; Do You Dip or Chew Tobacco: No; Hx Alcohol Use: Yes Hx Substance Use: No Preferred Language: Yi Spinning Frame Changer Required: No Beliefs That Will Affect Care: None Current Living Situation: Spouse Feels Safe at Home: Yes Assistive Devices: CPAP Review of Systems Review of Systems: Neuro: (-) Falls, trauma, slurred speech HEENT: (-) LOPEZ, dizziness, dysphagia, visual or auditory changes CV: (-) CP, palpitations, swelling Resp: (-) SOB GI: (-) appetite changes, N/V/D, bowel changes : (-) urinary changes Skin: (-) rashes Psych: (-) anxiety, depression Physical Exam Physical Exam: Neuro: AAOx4, PERRLA, no aphagia, memory changes, CNII-XII grossly intact HEENT: head normocephalic, moist mucus membranes CV: S1/S2, (-) M/G/R, (-) edema, cap refill < 3 seconds R femoral pressure dressing and R Resp: Lungs CTA in all baird. On RA GI: Abdomen S/NT/ND, Ax4 bowel sounds, (-) CVA tenderness Musculoskeletal: 5/5 B/L UE strength, 5/5 B/L LE strength. No gait disturbance Skin: (-) rashes , (-) erythema. Psych: euthymic mood Results & Data Results & Data Vital Signs (Past 12 Hours) Vital Signs Temp Pulse Resp BP Pulse Ox O2 Del Method 01/02/23 13:59 Room Air 01/02/23 13:51 115 H 28 H 149/110 H 99 Room Air 01/02/23 13:41 113 H 01/02/23 13:49 100 Room Air 01/02/23 13:48 113 H 20 100 Room Air 01/02/23 13:40 37.1 C 108 H 22 166/91 H 100 Room Air Laboratory Results Short CBC 01/02/23 Range/Units 13:33 WBC 7.85 (4.8-10.8) K/ul Hgb 13.2 L (14.0-18.0) g/dl Hct 39.0 L (42.0-52.0) % Plt Count 410 H (130-400) K/uL BMP 01/02/23 13:33 Sodium 136 Potassium 3.9 Chloride 104 Carbon Dioxide 26 BUN 11 Creatinine 0.83 Glucose 101 H Calcium 8.8 Liver Function 01/02/23 Range/Units 13:33 Total Bilirubin 1.0 (0.2-1.0) mg/dl AST 50 H (13-39) U/L ALT 38 (7-52) U/L Alkaline Phosphatase 67 (34-104) U/L Albumin 4.1 (3.4-5.0) gm/dl Code Status & VTE Plan Code Status Full Code in the event of cardiac or respiratory arrest VTE Prophylaxis Plan VTE Prophylaxis will be ordered: Yes Supervising Physician Co-Signing Physician Notes Attending addendum: The patient was seen and examined in telemetry unit He came in with chest pain with possible ST elevation VT and is status post cardiac cath with the unremarkable CAD Complaining of pain in the right upper extremity Denies any chest pain and/or palpitation On examination Severe pain involving the right upper extremity without any numbness and tingling Hemodynamically stable with blood pressure on the upper side Chest-clear to auscultate bilaterally Heart-S1, [id number] Abdomen-benign Extremities-negative for any edema His admission labs, imaging studies and echocardiogram reviewed Has ST elevation VT with increased troponin which could be secondary to myocarditis Status post cardiac cath and the patient remains free from any chest pain Other significant medical condition including pulmonary embolism and MTHFR gene mutation noted Agree with assessment and plan as outlined above by Sandi Navarro (1) ST elevation (STEMI) myocardial infarction Involved coronary artery: unspecified coronary artery Qualified Code(s): I21.3 - ST elevation (STEMI) myocardial infarction of unspecified site
--- NOTE | 2023-01-02 14:57 | XRay Report ---
XR chest 1V portable HISTORY: 37 years-old Male Chest pain, nonspecific COMPARISON: 07/08/2013 TECHNIQUE: AP view of the chest FINDINGS: Cardiac silhouette is mildly enlarged. No pneumothorax, pleural effusion, airspace consolidation or p ulmonary edema. Bones appear grossly intact. IMPRESSION: No acute process. ACT 112: Negative or not required by law. The above report was generated using voice recognition software. It may contain grammatical, syntax o r spelling errors. Electronically signed by: Nigel Garcia M.D. 01/02/2023 2:55 PM
--- NOTE | 2023-01-02 15:02 | Cardiac Catheterization ---
[facility] Data: Medical Billing Manager Cardiac Status Clinical evaluation leading to the procedure CAD Presenation: STEMI Anginal Classification: CCS IV Heart Failure: No Cardiogenic Shock within 24 Hours: No Cardiac Arrest within 24 Hours: No Imaging Studies Past 6 Months: No Stress Studies Past 6 Months: No Coronary Anatomy Dominant: Right Left Main (% Stenosis): Normal LAD (% Stenosis): Mid (20%) D1 (% Stenosis): Normal D2 (% Stenosis): Normal Circumflex (% Stenosis): Normal OM1 (% Stenosis): Normal OM2 (% Stenosis): Normal L PL1 (% Stenosis): Normal L PL2 (% Stenosis): Normal RCA (% Stenosis): Normal R PDA (% Stenosis): Normal R PL1 (% Stenosis): Normal Diagnostic Physicians Name: Matthias Cunningham MD, PhD Closure Device Percutaneous Entry Location: Both radial and femoral Closure Device: Angio-Seal and Radial Band Recommendations: Medical Therapy and/or Counseling Cardiac Cath Procedure Full Procedure Date January 02, 2023 Pre-Procedure Diagnosis Pre-Procedure Diagnosis: STEMI AUC Score AUC Score: 09 Post-Procedure Diagnosis Post-Procedure Diagnosis: Mild CAD Procedure(s) Performed Procedure(s) Performed: Coronary Angiography and Ultrasound Guided Vascular Access 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 Sedated using IV Versed and fentanyl. Soft tissues of the right wrist were anesthetized using 2 mL of 1% Xylocaine. The right radial artery was accessed with a modified Seldinger technique and a 6 Tristanian radial artery glide sheath was placed. He was provided anticoagulation with IV heparin and antispasmodics including nicardipine and nitroglycerin. We attempted to deliver diagnostic catheters and engaged the coronaries, however, he had profound vasospasm and despite use of additional antispasmodics we could not comfortably proceed from radial approach. Therefore, the catheters were removed and we proceeded with femoral artery approach. Soft tissues the right groin were anesthetized using 10 cc of 1% Xylocaine. Using the ultrasound for guidance (image saved), the right femoral artery was accessed and a 6 Tristanian femoral artery sheath was placed. All catheters were advanced and exchanged over a 0.035 J-tip wire. Left coronary angiography in orthogonal views with a 5 Tristanian JL 4 diagnostic catheter. Right coronary angiography in orthogonal views with a 5 Tristanian JR4 diagnostic catheter. Diagnostic catheters were removed. Limited right femoral artery angiography was performed to evaluate for closure. Findings were favorable, therefore, the femoral artery sheath was exchanged for a 6 Tristanian Angio-Seal closure device. This was deployed in the recommended fashion. We obtained immediate hemostasis and the patient remained hemodynamically stable. Then, the right radial artery sheath was removed and hemostasis was obtained using the TR band. Patient was then returned to the recovery area in stable condition. This ended the case. Coronary angiography findings: LGW-brwfw-gfzepza vessel bifurcating into LAD and circumflex. No disease. LAD- large caliber and transapical. Gives a large caliber branching first diagonal followed by a large caliber branching second diagonal. Proximal segment without disease. Mid segment with mild less than 20% stenosis. Dista lly there is mild luminal irregularities. The diagonal branches have no more than mild luminal irregularities. EBx-mbfki-ugnpmmz and nondominant. Travels in the AV groove where there is mild luminal irregularities proximally. Gives a small caliber first OM. It then almost immediately gives a very large caliber branching OM 2. The AV groove vessel continues distally providing an atrial branch and terminating in 2 small caliber posterolateral branches before it ends in the distal AV groove. No significant disease in the circumflex or its branches. YGP-fbtwf-oqefoka and dominant vessel. Bifurcates distally into a large PDA and a medium to large caliber branching posterior lateral. Mild scattered plaques. Branch vessels are without disease. Summary: 1. No more than mild nonocclusive coronary disease as described. 2. These findings suggest his ST elevation is secondary to pericarditis/myocarditis. Appropriate medical therapy per primary cardiology team. Hemodynamics Rest Ao:: 149/108 mmHg Final Ao: 126/102 mmHg LV: Not performed Recommendations Recommendations: Medical Therapy and/or Counseling Radiation Exposure (mGy) 888 mGy, fluoroscopy time 2.9 minutes Contrast (mls) 64 mL Anesthesia 3 mg IV Versed, 75 mcg IV fentanyl. Start time 1411, end time 1441 Procedural Complication(s) None Disposition Recovery Room\PACU I attest to the content of the Intraoperative Record and any orders documented therein. Any exceptions are noted below. [facility] Card [facility] Procedure Codes Cardiac Catheterization Procedure 1: Cardiovascular Cath Procedures: 40203 Coronaries Therapeutic Services & Ancillary Procedure 1: Cardiovascular Tx and Anc Procedures: 41504 Ultrasonic Guidance Vascular Access Moderate Sedation Procedure 1: Sedation/Anesthesia: 35290 Mod Sedation by the same physician;Init15 Min Child Age 5 & Up (Initial 15 minutes, start time 1411) Procedure 2: Sedation/Anesthesia: 39541 Mod Sedation by the same physician; Ea [id number] Minutes (Additional 15 minutes, end time 1441) PG Care Time/CCT Total # of Minutes Spent Total Time Spent with Patient: Total time spent is greater than 50% in coordination of care (as documented) at patient's floor/unit and/or counseling patient:
--- NOTE | 2023-01-02 15:37 | Cardiology Consultation ---
Date of Consultation January 02, 2023 Assessment & Plan (1) Chest pain: (2) Elevated troponin I level: (3) MTHFR gene mutation: (4) History of pulmonary embolism: Plan IMPRESSION: 37-year-old male with recurrent strep throat infections presented to [facility] emergency department after being referred by his PCP due to chest pain and an abnormal EKG showing ST elevation in the lateral leads. Troponin elevation to 6000, repeat pending. CRP elevated. Status post cardiac catheterization with only a 20% LAD stenosis and remaining coronary anatomy without disease. Concerns for myocarditis vs. other. Patient does carry a history of MTHFR gene mutation with prior pulmonary embolism following surgery in 2013. PLAN: Treat patient with goal-directed medical therapy with metoprolol succinate and lisinopril to reduce risk of inflammation associated with possible myocarditis. Start metoprolol succinate 25 mg daily Start lisinopril 2.5 mg daily Monitor on cap cutter renal function and electrolytes Continue aspirin 81 mg daily We will plan on close monitoring with a repeat echocardiogram in 24 to 48 hours. Okay to continue to trend HS tropinins Given MTHFR gene mutation and prior pulmonary embolism consider CTA of the chest to rule out recurrent pulmonary embolism given chest discomfort and tachycardia. Case discussed with Dr. Zavaleta- will follow. Supervising Physician Co-Signing Physician Notes Patient seen and examined, chart, medications, telemetry reviewed. 37-year-old male presents with intermittent chest pain abnormal EKG and elevated troponin. Cardiac catheterization without obstructive disease LV systolic function normal by echocardiogram reviewed Findings suspicious for acute myocarditis as noted. Patient begun on beta- dahiana therapy, ELIDIA inhibitor aspirin We will follow serial EKGs and echocardiograms consider cardiac MRI post hospital discharge Maintain telemetry Additional assessment as above History of Present Illness Reason for Consultation: Chest pain, abnormal EKG with acute ST segment changes. Requesting Physician: Yogi Chaves Attending Physician: Matthias Cunningham MD, PhD History of Present Illness 37-year-old male presented to his PCP office today due to concerns of sore throat and chest discomfort. Has had 3 episodes of strep throat in the last 6 months. Specifically over the last month he has been developing chest discomfort with exertion. Recently celebrated his daughter's birthday and had deep brain chairs and tables up the steps which elicited this chest discomfort. When he would stop and rest chest pain symptoms improved. No shortness of breath. No nausea or vomiting. Denies palpitations lightheadedness or dizziness. Of note, he also has been experiencing muscle and joint discomfort. Denies fever or chills. Intermittently has been taking ibuprofen which has helped his discomfort. EKG in the PCP office showed ST elevation in the lateral leads-given 4 baby aspirin and transferred to the ED via EMS. Underwent cardiac catheterization with Dr. Cunningham via groin access (unable to pass wire via right radial). Imaging revealed only a mid 20% LAD stenosis otherwise coronary anatomy was normal. Heart rates tachycardic with elevated blood pressures. Denies previous myocardial infarction, cardiac catheterization, coronary artery bypass grafting, a history of congestive heart failure, valvular disease or rheumatic fever, or history of arrhythmia. Never smoker, no alcohol or drug use. , has a daughter. Past medical history: -History of Pulmonary embolism, occurred few days after the laparoscopic cholecystectomy in 2013-- Received briefly anticoagulant treatment with Coumadin for about 6 months at that time. +Homozygous MTHFR mutation [id number], on ASA 81 mg -EDMAR on CPAP Family history: Mother-- extensive cardiac history with her suffering from her first WI and CVA at age 45. Otherwise noted to have CHF and valular disease. Histroy of scarlet fever vs rheumatic fever. Passed at age 54. Father-- noncontributory Siblings- noncontributory. Allergies Allergy/AdvReac Type Severity Reaction Status Date / Time No Known Allergies Allergy Unverified 07/02/19 23:05 Patient History Medical History (Updated 01/02/23 @ 16:04 by ANGIE Phillips) Acute streptococcal pharyngitis Acute tonsillitis Depression Dyspnea History of Filemon-Schaeffer virus infection History of pulmonary embolism EDMAR (obstructive sleep apnea) Pulmonary embolism (06/21/13) Surgical History (Updated 01/02/23 @ 16:00 by ANGIE Phillips) History of cholecystectomy Family History (Updated 01/02/23 @ 15:59 by ANGIE Phillips) Grandfather (Maternal) No problems noted. Grandfather (Maternal) No problems noted. Grandmother (Maternal) Coronary heart disease Mother Coronary heart disease Other Cancer Social History Smoking Status: Never smoker Tobacco Type: Cigarettes Preferred Language: Bulgarian Feels Safe at Home: Yes Review of Systems Review of Systems: All systems reviewed & are unremarkable except as noted in HPI & below Physical Exam Constitutional: WD/WN, vitals as above no acute distress Eyes: PERRL, conjunctivae normal, anicteric sclerae Neck: normal visual inspection and trachea midline Respiratory: normal respiratory effort, lungs clear to auscultation Cardiovascular: RRR, no murmur, no edema Heart Sounds: normal S1 and normal S2; no murmur Vessels: no JVD Extremities: no edema Gastrointestinal (Abdomen): normal bowel sounds, soft, nontender, no hepatosplenomegaly Musculoskeletal: no cyanosis or clubbing, extremities motor strength 5/5 Skin: no rashes, warm and dry Right radial cath site-- no inflammation, swelling, bleeding, or hematoma Right groin cath site-- no inflammation, swelling, bleeding, or hematoma Neurologic: PERRL, EOMI, accommodation nl, no face palsy, no dysarthria Psychiatric: A+Ox3, euthymic affect Results & Data Vital Signs (Past 12 Hours) Vital Signs Temp Pulse Pulse Resp BP BP Pulse Ox 01/02/23 15:00 98 H 01/02/23 15:00 98 H 18 133/90 100 01/02/23 13:59 01/02/23 13:51 115 H 28 H 149/110 H 99 01/02/23 13:41 113 H 01/02/23 13:49 100 01/02/23 13:48 113 H 20 100 01/02/23 13:40 37.1 C 108 H 22 166/91 H 100 O2 Del Method 01/02/23 15:00 01/02/23 15:00 Room Air 01/02/23 13:59 Room Air 01/02/23 13:51 Room Air 01/02/23 13:41 01/02/23 13:49 Room Air 01/02/23 13:48 Room Air 01/02/23 13:40 Room Air (1) Chest pain Chest pain type: unspecified Qualified Code(s): R07.9 - Chest pain, unspecified
--- NOTE | 2023-01-02 15:45 | Electrocardiogram Report ---
Test Reason : Blood Pressure : / mmHG Vent. Rate : 101 BPM Atrial Rate : 101 BPM P-R Int : 144 ms QRS Dur : 086 ms QT Int : 358 ms P-R-T Axes : 048 085 003 degrees QTc Int : [address] elevation consider lateral injury or acute infarct ACUTE KS / STEMI Abnormal ECG When compared with ECG of 08-JUL-2013 01:46, ST now depressed in Inferior leads Non-specific change in ST segment in Anterior leads ST elevation now present in Lateral leads Nonspecific T wave abnormality now evident in Anterior leads Confirmed by Charli Donaldson ([id number]) on 01/02/2023 3:45:05 PM Referred By: Confirmed By:Charli Donaldson
[2023-01-02] MEDS: lisinopril 2.5 MG TAB PO SCH (17:29)
[2023-01-02] MEDS: METOPROLOL SUCC 25MG EXT REL TAB PO SCH (17:29)
[2023-01-02] MEDS ORDERED: traMADol HCL 50 MG TABLET PO PRN (18:00)
[2023-01-02] MEDS ORDERED: HYDROmorphone INJ 0.5 MG/0.5 ML SYR IV STA (18:00)
[2023-01-02] MEDS ORDERED: HYDROmorphone INJ 0.5 MG/0.5 ML SYR ONE (18:04)
[2023-01-02] MEDS: SODIUM CHLORIDE 0.9% 1,000 ML IV SCH (18:10)
[2023-01-02 18:50] LABS: Lyme Ab IgG w/WB Rflx Negative (Negative); Lyme Ab IgM w/WB Rflx Negative (Negative)
[2023-01-02] MEDS ORDERED: METOPROLOL TARTRATE 25 MG TAB PO SCH (21:00)
[2023-01-03 06:22] LABS: Hematocrit (blood only) 35.1 % (42.0-52.0); Hemoglobin 12.1 g/dl (14.0-18.0); Mean Corpuscular Hemoglobin 33.3 pg (25.0-34.0); Mean Corpuscular Hgb Conc 34.5 g/dL (32.0-36.0); Mean Corpuscular Volume 96.7 fL (80.0-100.0); Platelet Count 380 K/uL (130-400); Red Blood Count 3.63 M/uL (4.70-6.10); White Blood Count 9.22 K/ul (4.8-10.8)
[2023-01-03 06:52] LABS: Albumin Globulin Ratio 1.5 (0.9-2); Albumin Level 3.7 gm/dl (3.4-5.0); BUN Creatinine Ratio 13.4 (10-20); Bilirubin,Total 1.4 mg/dl (0.2-1.0); Calcium 8.5 mg/dl (8.6-10.3); Creatinine Clr Calc Pharmacy 191.8 ml/min; Est GFR (African American) 142.3 ml/min; Est GFR (Non-African American) 122.8 ml/min; Globulin 2.5 gm/dl (2.5-4.0); Magnesium 1.9 mg/dl (1.7-2.4); Potassium 4.2 mmol/L (3.5-5.1); Total Protein 6.2 gm/dl (6.0-8.3)
[2023-01-03] MEDS: SODIUM CHLORIDE 0.9% 1,000 ML IV SCH (07:22)
--- NOTE | 2023-01-03 07:56 | Cardiology Progress Note ---
Date of Service January 03, 2023 Assessment & Plan (1) Chest pain: (2) Elevated troponin I level: (3) MTHFR gene mutation: (4) History of pulmonary embolism: Plan IMPRESSION: 37-year-old male with recurrent strep throat infections presented to [facility] emergency department after being referred by his PCP due to chest pain and an abnormal EKG showing ST elevation in the lateral leads. Troponin elevation to 6000 and trending downward. CRP elevated. Lyme negative Status post cardiac catheterization with only a 20% LAD stenosis and remaining coronary anatomy without disease. Concerns for myocarditis vs. other. Patient does carry a history of MTHFR gene mutation with prior pulmonary embolism following surgery in 2013. PLAN: Treat patient with goal-directed medical therapy with metoprolol succinate and lisinopril to reduce risk of inflammation associated with possible myocarditis. 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 Will plan on outpatient cardiac MRI for further assessment. Given MTHFR gene mutation and prior pulmonary embolism consider CTA of the chest to rule out recurrent pulmonary embolism given chest discomfort and tachycardia. Case discussed with Dr. Zavaleta- will follow. Admission and Anticipated Discharge Date Admission Date: January 02, 2023 Supervising Physician Co-Signing Physician Notes Patient seen and personally examined. Assessment and plan as well outlined above Patient presented with chest pain, abnormal EKG and elevated troponin Cardiac catheterization without obstructive disease EKGs without evolution Still with right arm and right shoulder pain this morning No focal abnormality on exam Impression: Right shoulder pain, elevated troponins. CTA exclude pulmonary embolus given hypercoagulable risk Initial presentation suspicious for myocarditis though with preserved ejection fraction and wall motion. Medications as ordered we will plan on repeating echocardiogram in a.m. Would maintain telemetry at least an additional 24 hours Subjective 37-year-old male presents with intermittent chest pain abnormal EKG and elevated troponin. Cardiac catheterization without obstructive disease, LV systolic function normal by echocardiogram. Findings suspicious for acute myocarditis as noted. Patient begun on beta- dahiana therapy, ELIDIA inhibitor, and aspirin. 01/03: Labs: stable renal function. Lyme negative. Tele: SR with PVCs 70-90s Upon entrance into the room patient resting in the chair. No acute concerns. No chest pain or shortness of breath. Cath access sites both radial and groin clean and dry without evidence of hematoma. No lightheadedness or dizziness. No palpitations. Review of Systems Review of Systems: All systems reviewed & are unremarkable except as noted in HPI & below Physical Exam Constitutional: WD/WN, vitals as above no acute distress Eyes: PERRL, conjunctivae normal, anicteric sclerae Neck: normal visual inspection and trachea midline Respiratory: normal respiratory effort, lungs clear to auscultation Cardiovascular: RRR, no murmur, no edema Heart Sounds: normal S1 and normal S2; no murmur Vessels: no JVD Extremities: no edema Gastrointestinal (Abdomen): normal bowel sounds, soft, nontender, no hepatosplenomegaly Musculoskeletal: no cyanosis or clubbing, extremities motor strength 5/5 Skin: no rashes, warm and dry Neurologic: PERRL, EOMI, accommodation nl, no face palsy, no dysarthria Psychiatric: A+Ox3, euthymic affect Results & Data Vital Signs (Past 12 Hours) Vital Signs Temp Pulse Pulse Resp BP Pulse Ox O2 Del Method 01/03/23 03:46 37.2 C 82 18 129/85 96 Room Air 01/03/23 00:04 36.6 C 79 16 141/96 H 100 Room Air 01/02/23 23:00 75 Laboratory Results Cardiac Enzymes 01/02/23 01/02/23 01/03/23 Range/Units 13:33 17:45 05:50 AST 50 H 34 (13-39) U/L Troponin I High Sens 6009.2 H* 5888.1 H* (0-20) pg/ml Coagulation 01/02/23 Range/Units 13:33 PT 10.9 (9.0-12.0) Seconds APTT 28.5 (21.0-31.0) Seconds CBC 01/02/23 01/03/23 Range/Units 13:33 05:50 WBC 7.85 9.22 (4.8-10.8) K/ul RBC 4.00 L 3.63 L (4.70-6.10) M/uL Hgb 13.2 L 12.1 L (14.0-18.0) g/dl Hct 39.0 L 35.1 L (42.0-52.0) % Plt Count 410 H 380 (130-400) K/uL Neut # (Auto) 3.99 (1.40-6.50) K/uL Lymph # (Auto) 2.76 (1.20-3.40) K/uL Cochran # (Auto) 0.92 H (0.11-0.59) K/uL Eos # (Auto) 0.07 (0.00-0.50) K/uL Baso # (Auto) 0.09 (0.00-0.20) K/uL Comprehensive Metabolic Panel 01/02/23 01/03/23 Range/Units 13:33 05:50 Sodium 136 134 L (136-145) mmol/L Potassium 3.9 4.2 (3.5-5.1) mmol/L Chloride 104 103 (98-107) mmol/L Carbon Dioxide 26 25 (21-32) mmol/L BUN 11 9 (6-23) mg/dl Creatinine 0.83 0.67 (0.6-1.4) mg/dl Glucose 101 H 102 H (70-99(Fasting)) mg/dl Calcium 8.8 8.5 L (8.6-10.3) mg/dl AST 50 H 34 (13-39) U/L ALT 38 33 (7-52) U/L Alkaline Phosphatase 67 55 (34-104) U/L Total Protein 7.0 6.2 (6.0-8.3) gm/dl Albumin 4.1 3.7 (3.4-5.0) gm/dl Intake and Output 01/02/23 01/03/23 01/03/23 22:59 06:59 14:59 Intake Total 990 / 990 Output Total 0 / 0 Balance 0 / 0 990 / 990 Intake: IV 990 / 990 Sodium Chloride 0.9% 1,000 ml @ 990 / 990 75 mls/hr IV .[id number] [facility] Rx#: [id number] Output: Urine 0 / 0 Other: # Unmeasured Voids 1 3 Weight 131.4 kg 115.122 kg Weight Measurement Method Stated by [facility] Diagnostic Findings Echo at [facility] 01/02/2023 LVEF 55 to 60% with normal wall motion. Moderate concentric LVH. RV normal in size and function. No significant valvular disease. No pericardial effusion. (1) Chest pain Chest pain type: unspecified Qualified Code(s): R07.9 - Chest pain, unspecified
[2023-01-03] MEDS: buPROPion XL 150 MG TABCR PO SCH (08:34)
[2023-01-03] MEDS: METOPROLOL SUCC 25MG EXT REL TAB PO SCH (08:35)
[2023-01-03] MEDS: lisinopril 2.5 MG TAB PO SCH (08:35)
[2023-01-03] MEDS ORDERED: ASPIRIN 81 MG ECTAB PO SCH (09:00)
[2023-01-03] MEDS ORDERED: SODIUM CHLORIDE 0.9% 1,000 ML IV SCH (13:15)
[2023-01-03] MEDS ORDERED: OPTIRAY 320 500ml IV ONE (13:24)
[2023-01-03] MEDS ORDERED: lisinopril 2.5 MG TAB PO ONE (13:34)
--- NOTE | 2023-01-03 13:55 | CT Scan Report ---
CHEST CTA for PULMONARY ARTERIES CT DOSE: HISTORY: Mid chest pain. Rule out PE TECHNIQUE: Multiaxial CT images of the chest were performed following the intravenous administration of contrast to evaluate the pulmonary arteries. 3D/Maximal intensity projection images were also obta ined. Sagittal and coronal reformations were also reviewed. A dose lowering technique was utilized a dhering to the principles of ALARA. COMPARISON STUDY: Chest CTA 06/21/2013. FINDINGS: Normal caliber thoracic aorta with no evidence for dissection. The heart remains borderline enlarged. No pleural or pericardial effusions. No mediastinal or hilar lymphadenopathy. Normal esoph jasiel. Normal caliber thoracic aorta with no evidence for dissection. No filling defects within the pu lmonary arteries to suggest a pulmonary embolus. Limited views of the upper abdomen demonstrate hepat ic steatosis and a normal spleen. Prior cholecystectomy. 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 No pneumothorax. The central airways are patent . A few small linear densities within the bilateral lower lobe suggestive of subsegmental atelectasis or scarring. No focal lung consolidations to suggest a pneumonia. No evidence for pulmonary edema. T here is a punctate calcified granuloma within the base of the right lower lobe. IMPRESSION: 1. No evidence for a pulmonary embolus. 2. Additional findings as described above. ACT 112: Negative or not required by law. Electronically signed by: Yovani Lindquist M.D. 01/03/2023 1:53 PM
[2023-01-03] MEDS ORDERED: CALCIUM CARBONATE 500 MG CHEWABLE TAB PO PRN (14:11)
--- NOTE | 2023-01-03 14:55 | Hospitalist Progress Note ---
Date of Service January 03, 2023 Assessment & Plan (1) ST elevation (STEMI) myocardial infarction: (2) History of pulmonary embolism: (3) History of Filemon-Schaeffer virus infection: (4) EDMAR (obstructive sleep apnea): (5) Depression: Plan Mr. Mcdonough is a 37 year old obese individual that presented to the ED as per recommendation of his PCP after noticing ST elevation in lateral leads on his ECG. ASA 81 mg x4 was given by EMS. He reports experiencing chest pain for one month. Stated that he has noticed exertional chest pain this past weekend when he was carrying a table for his daughters 2nd birthday alliance party and he became 'win ded' during movement of them that made his anterior chest pain worse. This past weekend he also noticed joint pain in his knees and wrists. 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 ECG revealed ST elevation is lateral leads, including Pt was taken urgently to the medical lab scientist . For now, suspect patient has myocarditis. ECHO was obtained: EF 55-60%, LV wall motion normal, moderate LVH noted, no significant valve disease noted. Will trend high-sensitivity troponin level, continue baby aspirin and per cardiology recommendation repeat echo in 24 to 48 hours. low dose beta-dahiana and ACEI s tarted post cath. Appreciate cardiology input. Chest pain Elevated troponins, ruled out AK, concern for myocarditis PCU admission exertional chest pain over past few weeks urgent cath performed; without significant disease and no intervention. 20% LAD stenosis discovered. ECHO to r/o myocarditis; EF 55-60%, LV wall motion normal, moderate LVH noted, no significant valve disease noted CTA chest was done, negative for PE. Initial Trop 6009, down trended Continue baby [facility] Cardiology on board, beta-dahiana and ELIDIA inhibitor started, repeat echocardiogram tomorrow, outpatient cardiac MRI. Monitor and replete electrolytes, continue with telemetry. COVID and Lyme screen negative. History of Filemon-Schaeffer virus infection: H/O Strep infection: tested positive on 12/17 Completed Augmentin course will obtain ECHO; EF 55-60%, LV wall motion normal, moderate LVH noted, no significant valve disease noted Polyarthralgia: joint pain noted over past few days; bilateral Lyme's test ordered -negative. ESR and CRP elevated, will send NICCI and rheumatoid factor. Tylenol for pain management. History of PE: chronic stable provoked from cholecystectomy 2013 was on Anticoagulation x6 months; takes baby ASA now EDMAR: chronic stable wears CPAP QHS; bringing in his own machine Depression: Chronic stable Takes Buspar and Deplin; continue Disposition: PCP: Dr. Nichols Code Status: Full Code VTE Prophylaxis: Teds and SCDs for now Recent heart cath and CTA chest, continue NSS for today. Admission and Anticipated Discharge Date Admission Date: January 02, 2023 Subjective Patient was seen and examined at bedside. Patient was lying in bed, on room air, resting comfortably, not in any acute distress. Patient reports ongoing/constant low-grade chest pain with no radiation at bedside exam. Patient denies any headache or dizziness or palpitation or sore throat or cough. Physical Exam Physical Exam: Neuro: AAOx4, PERRLA, no aphagia, memory changes, CNII-XII grossly intact HEENT: head normocephalic, moist mucus membranes CV: S1/S2, (-) M/G/R, (-) edema, cap refill < 3 seconds Resp: Lungs CTA in all baird. On RA GI: Abdomen S/NT/ND, Ax4 bowel sounds, (-) CVA tenderness Musculoskeletal: 5/5 B/L UE strength, 5/5 B/L LE strength. No gait disturbance Skin: (-) rashes , (-) erythema. Psych: euthymic mood Results & Data Results & Data Vital Signs (Past 12 Hours) Vital Signs Temp Pulse Pulse Resp BP Pulse Ox O2 Del Method 01/03/23 13:36 140/83 01/03/23 13:12 135/90 01/03/23 13:11 82 18 151/101 H 98 Room Air 01/03/23 10:55 77 20 139/93 99 Room Air 01/03/23 10:44 37.1 C 70 16 126/86 98 Room Air 01/03/23 08:00 71 01/03/23 07:17 37.2 C 72 16 129/83 97 Room Air 01/03/23 03:46 37.2 C 82 18 129/85 96 Room Air (1) ST elevation (STEMI) myocardial infarction Involved coronary artery: unspecified coronary artery Qualified Code(s): I21.3 - ST elevation (STEMI) myocardial infarction of unspecified site
--- NOTE | 2023-01-03 15:53 | Electrocardiogram Report ---
Test Reason : Blood Pressure : / mmHG Vent. Rate : 082 BPM Atrial Rate : 082 BPM P-R Int : 148 ms QRS Dur : 090 ms QT Int : 394 ms P-R-T Axes : 024 078 014 degrees QTc Int : 460 ms Normal sinus rhythm ST elevation, consider early repolarization, pericarditis, or injury Abnormal ECG When compared with ECG of 02-JAN-2023 13:34, Nonspecific T wave abnormality no longer evident in Anterior leads Confirmed by Charli Donaldson ([id number]) on 01/03/2023 3:53:39 PM Referred By: REFERRED SELF Confirmed By:Charli Donaldson
--- NOTE | 2023-01-03 15:55 | Electrocardiogram Report ---
Test Reason : Blood Pressure : / mmHG Vent. Rate : 072 BPM Atrial Rate : 072 BPM P-R Int : 144 ms QRS Dur : 088 ms QT Int : 398 ms P-R-T Axes : 029 079 016 degrees QTc Int : 435 ms Normal sinus rhythm ST elevation, consider early repolarization, pericarditis, or injury Abnormal ECG When compared with ECG of 03-JAN-2023 08:29, (unconfirmed) No significant change was found Confirmed by Charli Donaldson ([id number]) on 01/03/2023 3:55:40 PM Referred By: REFERRED SELF Confirmed By:Charli Donaldson
[2023-01-03] MEDS: PANTOprazole 40 MG TAB PO SCH (17:05)
[2023-01-03] MEDS: ASPIRIN 325 MG ECTAB PO SCH (17:05)
[2023-01-04 02:46] LABS: Hematocrit (blood only) 36.6 % (42.0-52.0); Hemoglobin 12.3 g/dl (14.0-18.0); Mean Corpuscular Hemoglobin 32.9 pg (25.0-34.0); Mean Corpuscular Hgb Conc 33.6 g/dL (32.0-36.0); Mean Corpuscular Volume 97.9 fL (80.0-100.0); Mean Platelet Volume 9.6 fL (9.4-12.4); Platelet Count 370 K/uL (130-400); RDW Coefficient of Variation 19.1 % (11.5-14.5); RDW Standard Deviation 67.7 fL (36.4-46.3); Red Blood Count 3.74 M/uL (4.70-6.10); White Blood Count 11.16 K/ul (4.8-10.8)
[2023-01-04 03:05] LABS: BUN Creatinine Ratio 17.9 (10-20); Calcium 8.5 mg/dl (8.6-10.3); Creatinine Clr Calc Pharmacy 164.8 ml/min; Est GFR (African American) 133.7 ml/min; Est GFR (Non-African American) 115.3 ml/min; Phosphorus 4.6 mg/dl (2.5-4.9); Potassium 4.3 mmol/L (3.5-5.1)
--- NOTE | 2023-01-04 07:48 | Cardiology Progress Note ---
Date of Service January 04, 2023 Assessment & Plan (1) Chest pain: (2) Elevated troponin I level: (3) MTHFR gene mutation: (4) History of pulmonary embolism: Plan IMPRESSION: 37-year-old male with recurrent strep throat infections presented to [facility] emergency department after being referred by his PCP due to chest pain and an abnormal EKG showing ST elevation in the lateral leads. Troponin elevation to 6000 and trending downward. CRP elevated. Lyme negative Status post cardiac catheterization with only a 20% LAD stenosis and remaining coronary anatomy without disease. Concerns for myocarditis vs. other. Patient does carry a history of MTHFR gene mutation with prior pulmonary embolism following surgery in 2013. CTA during admission negative for PE. PLAN: Treat patient with goal-directed medical therapy with metoprolol succinate and lisinopril to reduce risk of inflammation associated with possible myocarditis. Continue metoprolol succinate 25 mg daily Continue lisinopril 5 mg daily Monitor on horse doctor renal function and electrolytes Continue aspirin 650 mg TID with meals We will plan on close monitoring with a repeat echocardiogram this am- results pending Will plan on outpatient cardiac MRI for further assessment. Case discussed with Dr. Zavaleta- will follow. Admission and Anticipated Discharge Date Admission Date: January 02, 2023 Supervising Physician Co-Signing Physician Notes Patient seen and examined, chart, medications reviewed Echocardiogram with normal to hyperdynamic LV function no pericardial effusion Patient without complaint and tolerating current medical therapies Discussed with ID unlikely this is rheumatic fever treating as viral myocarditis Discussed in detail with patient plan as outlined above high-dose aspirin for 1 week continue metoprolol Cardiac MRI posthospitalization with this being her Subjective 37-year-old male presents with intermittent chest pain abnormal EKG and elevated troponin. Cardiac catheterization (01/02) without obstructive disease, LV systolic function normal by echocardiogram. Findings suspicious for acute myocarditis as noted. Patient begun on beta- dahiana therapy, ELIDIA inhibitor, and aspirin. 01/03: Intermittent atypical chest pain noted throughout the day. CTA of the chest was negative for PE. Started on high-dose aspirin 650 mg 3 times daily with meals and Protonix 40 mg daily. Blood pressures remained elevated lisinopril was increased to 5 mg daily. Metoprolol succinate 25 mg daily continued. 01/04: Labs: stable renal function and electrolytes Tele: SR with PVCs 70-90s Upon entrance into the room patient resting in the chair. No acute concerns. No chest pain or shortness of breath. Cath access sites both radial and groin clean and dry without evidence of hematoma. No lightheadedness or dizziness. No palpitations. Review of Systems Review of Systems: All systems reviewed & are unremarkable except as noted in HPI & below Physical Exam Constitutional: WD/WN, vitals as above no acute distress Eyes: PERRL, conjunctivae normal, anicteric sclerae Neck: normal visual inspection and trachea midline Respiratory: normal respiratory effort, lungs clear to auscultation Cardiovascular: RRR, no murmur, no edema Heart Sounds: normal S1 and normal S2; no murmur Vessels: no JVD Extremities: no edema Gastrointestinal (Abdomen): normal bowel sounds, soft, nontender, no hepatosplenomegaly Musculoskeletal: no cyanosis or clubbing, extremities motor strength 5/5 Skin: no rashes, warm and dry Neurologic: PERRL, EOMI, accommodation nl, no face palsy, no dysarthria Psychiatric: A+Ox3, euthymic affect Results & Data Vital Signs (Past 12 Hours) Vital Signs Temp Pulse Resp BP Pulse Ox O2 Del Method 01/04/23 03:01 37 C 73 14 93/68 L 97 Room Air 01/03/23 23:39 36.7 C 79 16 121/82 98 Room Air (1) Chest pain Chest pain type: unspecified Qualified Code(s): R07.9 - Chest pain, unspecified
[2023-01-04] MEDS: buPROPion XL 150 MG TABCR PO SCH (08:00)
[2023-01-04] MEDS: METOPROLOL SUCC 25MG EXT REL TAB PO SCH (08:00)
[2023-01-04] MEDS: PANTOprazole 40 MG TAB PO SCH (08:00)
[2023-01-04] MEDS: ASPIRIN 325 MG ECTAB PO SCH ×3 (08:00→16:34)
[2023-01-04] MEDS ORDERED: lisinopril 5 MG TAB PO SCH (09:00)
--- NOTE | 2023-01-04 15:14 | Discharge Summary ---
Date of Service January 04, 2023 Admission HPI Per Admitting Provider Mr. Mcdonough is a 37 year old obese individual that presented to the ED as per recommendation of his PCP after noticing ST elevation on his ECG. ASA 81 mg x4 was given by EMS. He reports experiencing chest pain for one month. Stated that he has noticed exertional chest pain this past weekend when he was carrying a table for his daughters 2nd birthday democrat and he became 'winded' during movement of them that made his anterior chest pain worse. This past weekend he also noticed joint pain in his knees and wrists. 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 Cardiac cath without significant disease and no intervention. 20% LAD stenosis discovered. PMH includes H/O PE s/p provoked by gallbladder surgery in 2013. Was on anticoagulation x6 months, currently just takes baby asa. Additional history includes COPD (on cpap QHS), and depression. In review of EMR; appears patient tested positive for EBV on 12/17. Recently completed Augmentin for treatment of Strep. Will obtain an Echocardiogram, no previous available for comparison for suspicion of myocarditis. Family history includes: MGM: valve replacement at 50 y/o, Mother had CHF, mitral valve replacement at 44 y/o and at 54 y/o. Denies tobacco use, alcohol use, or recreational drug use. Post cath, patient denies chest pain, SOB, palpitations, abdominal pain or tenderness, recent falls or trauma. Patient hypertensive post cath, with elevated HR. Discussed directly with Cardiology.Cards starting on beta-dahiana and ACEI. For now, suspect patient has myocarditis. ECHO was obtained: EF 55-60%, LV wall motion normal, moderate LVH noted, no significant valve disease noted. Will trend high-sensitivity troponin level, continue baby aspirin and per cardiology recommendation repeat echo in 24 to 48 hours. Appreciate cardiology input Patient will be admitted for further evaluation and management. Please see A/P for further details. Admission Exam Per Admitting Provider Neuro: AAOx4, PERRLA, no aphagia, memory changes, CNII-XII grossly intact HEENT: head normocephalic, moist mucus membranes CV: S1/S2, (-) M/G/R, (-) edema, cap refill < 3 seconds R femoral pressure dressing and R Resp: Lungs CTA in all baird. On RA GI: Abdomen S/NT/ND, Ax4 bowel sounds, (-) CVA tenderness Musculoskeletal: 5/5 B/L UE strength, 5/5 B/L LE strength. No gait disturbance Skin: (-) rashes , (-) erythema. Psych: euthymic mood Principal Diagnosis Myocarditis Discharge Exam Constitutional: WD/WN, vitals as above, NAD, sitting up in bed, pleasant, conversing easily Respiratory: normal respiratory effort, lungs clear to auscultation, no wheeze, rales, rhonchi. Normal insp/exp effort, no accessory muscle use Cardiovascular: RRR, no murmur, no edema Vessels: no JVD or carotid bruit Chest: normal inspection of chest Abdomen: normal bowel sounds, soft, nontender, no hepatosplenomegaly Musculoskeletal: no cyanosis or clubbing, extremities motor strength 5/5 Skin: no rashes, warm and dry normal turgor Neurologic: PERRL, EOMI, accommodation nl, no face palsy, no dysarthria CN's II- XI intact bilaterally and moves all extremities Psychiatric: A+Ox3, euthymic affect Discharge Data Allergies Allergy/AdvReac Type Severity Reaction Status Date / Time No Known Allergies Allergy Unverified 07/02/19 23:05 Consultations 01/02/23 13:38 Consult Cardiac Catheterization Stat 01/02/23 14:03 ED Decision to Admit Stat 01/02/23 15:30 Consult Cardiology Routine Procedures Performed Operation Date: 01/02/23 13:55 Actual Procedures p Cath, Coronaries ONLY (no LV) - Matthias Cunningham MD, PhD s Cineradiography w/Routine Exam - Matthias Cunningham MD, PhD s Placement Art Occlusive Device - Matthias Cunningham MD, PhD Ordered Studies 01/02/23 13:55 CL Cath Imgs for PACS use only Stat 01/03/23 11:49 CT angio chest PE protocol Urgent Hospital Course (1) ST elevation (STEMI) myocardial infarction: (2) History of pulmonary embolism: (3) History of Filemon-Schaeffer virus infection: (4) EDMAR (obstructive sleep apnea): (5) Depression: Plan Mr. Mcdonough is a 37 year old male that presented to the ED as per recommendation of his PCP after noticing ST elevation in lateral leads on his ECG. ASA 81 mg x4 was given by EMS. He reports experiencing chest pain for one month. Urgent left heart catheterization was done; did not show any significant disease. 20% LAD stenosis discovered. No intervention was done. High sensitive troponin was 6000 which down trended gradually over the hospitalization Echocardiogram was done which showed EF of 55 to 60% with moderate LVH. Cardiology consultation was done; patient was started on high-dose aspirin, lisinopril and beta-dahiana. Follow-up limited echocardiogram was showed EF of 60 to 65% with no pericardial effusion. He was found to have elevated ESR and CRP for which NICCI and rheumatoid factors were sent. CTA chest was negative for PE. Patient was discharged home on aspirin 650 mg 3 times a day for 1 week along with Protonix. He was also started on lisinopril, beta-dahiana. NICCI and rheumatoid factor are pending. Patient to follow-up with PCP regarding the results. Might need rheumatoid referral based on the results Please note the above document was generated using voice recognition software. It may contain grammatical, syntax or spelling errors. Any formal questions or concerns about the content, text or information contained within the body of this dictation should be directly addressed to the provider for clarification Total Time Total Time Spent Total Time Spent (In Minutes): 45 Discharge Plan Discharge Items Patient Disposition: Home - Self-Care Reason For Visit: STEMI Discharge Diagnosis: Myocarditis Activity: Resume your previous activity Non-emergency contact: Primary Care Provider Call non-emergency contact if: you have any medication questions Follow-up/Referrals: Verónica Nichols MD [Primary Care Provider] - (Date & Time 01/09/2023 2:20 PM Provider Verónica Nichols MD Department Family [facility] ) Yazmin Abraham CRNP [Nurse Practitioner] - (The Cardiology office will contact you with a follow up appointment and to schedule a cardiac MRI.) Diet: Regular Addtl Attending Provider Instructions: You were admitted to the hospital due to concern of heart attack. The likely cause of the symptoms is myocarditis. You are prescribed following medication as recommended by the focuser: 1) aspirin 650 mg 3 times a day for 7 days. Please take Protonix 40 mg once a day while you are on aspirin as it can cause GI discomfort 2) lisinopril 5 mg once a day 3) metoprolol 25 mg once a day. You have a rheumatoid factor and NICCI sent to rule out current tissue disorder. The lab test are pending. Please follow-up with your primary care doctor regarding the results. An appointment will be set up for you for next week Pending Studies at Discharge: Yes Studies:: Rheumatoid factor, NICCI, coxsackievirus panel Stand-Alone Forms: My [facility], Smoking Cessation Medications and DC Order Prescriptions: New aspirin [Ecotrin] 325 mg Tablet,Delayed Release (Dr/Ec) 650 mg PO TIDM 7 Days Qty: 42 0RF pantoprazole 40 mg Tablet,Delayed Release (Dr/Ec) 40 mg PO QAM Qty: 10 0RF lisinopril [Zestril] 5 mg Tablet 5 mg PO QAM Qty: 30 0RF metoprolol succinate 25 mg Tablet Extended Release 24 Hr 25 mg PO QAM Qty: 30 0RF Continued bupropion HCl 150 mg tablet extended release 24 hr 150 mg PO DAILY Held aspirin 81 mg Capsule 81 mg PO DAILY Hold Instructions: Resume on 01/11/23. After completion of high-dose aspirin. Discharge Orders: Discharge Order (Routine); Ordered 01/04/23 Ordered By: Adrian Longoria Admission Data Admit Date/Time: 01/02/23 14:42 Attending Provider: Adrian Longoria Admit Provider: Stefan Navarro Primary Care Provider: Verónica Nichols Other Providers: Matthias Cunningham ; Stefan Navarro ; Logan Zavaleta ; Rufino Limon
--- NOTE | 2023-01-04 16:24 | Electrocardiogram Report ---
Test Reason : Blood Pressure : / mmHG Vent. Rate : 069 BPM Atrial Rate : 069 BPM P-R Int : 140 ms QRS Dur : 090 ms QT Int : 412 ms P-R-T Axes : 032 096 026 degrees QTc Int : 441 ms Normal sinus rhythm Rightward axis Borderline ECG When compared with ECG of 03-JAN-2023 10:55, No significant change was found Confirmed by Charli Donaldson ([id number]) on 01/04/2023 4:24:07 PM Referred By: REFERRED SELF Confirmed By:Charli Donaldson
--- NOTE | 2023-01-07 12:04 | Coding Query ---
CODING QUERY To promote full compliance with coding requirements relating to patient care, provider participation is requested in all cases of golf cart attendant uncertainty. Please assist us with the question(s) below: Coding Question(s): There is documentation of possible STEMI in the record, with documentation on the H&P by the supervising physician of, "Has ST elevation AK with increased troponin which could be secondary to myocarditis", and documentation on the Cardiac Catheterization of Pre-Procedural Diagnosis of STEMI, then documentation of, " Summary: 1. No more than mild nonocclusive coronary disease as described. 2. These findings suggest his ST elevation is secondary to pericarditis/myocarditis", then the 01/03 Hospitalist Progress Note documents, "(1) ST elevation (STEMI) myocardial infarction:", but also documents, "Elevated troponins, ruled out AK, concern for myocarditis", and the Discharge Summary still documents ST elevation (STEMI) myocardial infarction, and documents, "You were admitted to the hospital due to concern of heart attack. The likely cause of the symptoms is myocarditis". Since the 01/03 Progress Note is the only documentation of ruled out AK but has documented on the same page STEMI and the STEMI documentation is also on the Discharge Summary, It is not clear if the possible STEMI was ruled-out or was still possible and secondary to myocarditis as documented on the H&P. Please clarify below in your clinical opinion: ( X ) STEMI was Ruled-Out, and symptoms are only due to Myocarditis ( ) Possible STEMI secondary to Myocarditis still diagnosed ( ) Other: Please Specify Physician's Response(s): Thank you Carol Tobias Principal Diagnosis: "that condition established after study, to be chiefly responsible for occasioning the admission of the patient to the hospital for care." Co-Existing Principal Diagnosis: "when two or more diagnoses equally meet the criteria for principal diagnosis as determined by the circumstances of admission, diagnostic work up, and/or therapy provided, and the Alphabetic Index, Tabular List, or another coding guideline does not provide sequencing direction, any one of the diagnoses may be sequenced first." "When the physician has documented what appears to be a current diagnosis in the body of the record, but has not included the diagnosis in the final diagnostic statement, the physician should be asked whether the diagnosis should be added." (Source Coding [facility] 2 QTR90. p3-4) TAMIKA
[2023-01-08 16:52] LABS: Anti Nuclear Antibody Screen NEGATIVE (NEGATIVE); Coxsackie A10 <1:8; Coxsackie A16 <1:8; Coxsackie A2 <1:8; Coxsackie A4 <1:8; Coxsackie A7 <1:8; Coxsackie A9 <1:8; Rheumatoid Factor <14 IU/mL (<14)
== END 2023-01-04 18:12 | disposition home or self-care (01) | DRG 287 ==
LOC: ED 13:37 → 2S 13:59 → CC 13:59 → SUATTDRO 14:42 → 2S 14:42
PROC: CLB.CCO (2023-01-02 13:55)